=== PATIENT | male | born 1950 | race Caucasian/White ===

== ENCOUNTER → 2019-11-05 08:14 | Outpatient (CLI) | payer MEDICARE, SELFPAY ==
--- NOTE | ~2019-11-05 | XR_ITS ---
EXAMINATION: XR abdomen/kub 1V INDICATION: Bilateral kidney stones TECHNIQUE: Supine views of the abdomen were obtained on 2 radiographs. COMPARISON: 10/17/2018 FINDINGS: Again seen are stones measuring 1.3 cm and 1.4 cm in the left mid and lower kidney, respect ively. A stable 5 mm stone is also noted in the lower pole of left kidney. There is a 5 mm stone of t he right kidney lower pole. No stones are identified along the expected courses of the ureters or wit hin the bladder. The bowel gas pattern is normal. There is severe lumbar spondylosis. IMPRESSION: 1. Stable bilateral nephrolithiasis. Reviewed, dictated and finalized at location A.
--- NOTE | ~2019-11-05 | CT_ITS ---
EXAMINATION: CT abdomen pelvis wo con DATE: 11/05/2019 08:53 INDICATION: Bilateral kidney stones TECHNIQUE: Computed tomography (CT) of the abdomen and pelvis was performed without intravenous contr ast. Automated exposure control and iterative reconstruction technique were employed. Exam dose: 101 5.54 mGy-cm total exam DLP. COMPARISON: 11/05/2019 KUB 07/17/2018 CT abdomen pelvis FINDINGS: There are calcified granulomas in the middle and right lower lobes. There is no infiltrate or consolidation at the lung bases. Normal heart size. No pericardial or pleural effusion. The liver, gallbladder, bile ducts and spleen are unremarkable on this limited noncontrast examinatio n. There is some residual probable scarring in the region of the pancreatic body and tail from prior abs cess noted in this region on 07/17/2018. Normal morphology of the adrenal glands. Bilateral nonobstructive nephrolithiasis, with the stones more numerous and larger on the left. An up per pole left renal calculus measures up to 11 mm dimension with 1256 Hounsfield unit measurement. A lower pole calculus measures up to 12.5 mm, with attenuation of 1418 Hounsfield units. There are scat tered smaller left renal calculi. 2.5 cm and 1.8 cm upper pole right renal cysts. Several additional exophytic cysts are noted in the mid to lower right renal area, measuring up to 2.5 cm approximate ma ximal dimension. Bilateral renal scarring and left renal atrophy. No ureteral calculus or hydroureteronephrosis of either kidney. The urinary bladder is relatively roberto cuated; diffuse bladder wall thickening. Prostate enlargement and calcifications. There is calcification and tortuosity of the abdominal aorta but no aneurysm. No intraperitoneal or r etroperitoneal or pelvic mass lesion or adenopathy or ascites. Diverticulosis of the colon; no CT evidence of diverticulitis. No bowel obstruction, bowel wall thick ening, pneumatosis or intraperitoneal free air is evident. Small fat-containing inguinal hernias. There are extensive degenerative changes of the thoracic and lumbar spine, including particularly sev ere degenerative disease at L3-4, L4-5 and L5-S1. Diffuse idiopathic skeletal hyperostosis of the tho racolumbar spine. IMPRESSION: Bilateral nonobstructive nephrolithiasis, more prominent on the left Bilateral renal scarring, left renal atrophy Right renal cysts Reviewed, dictated and finalized at Location A. Reviewed, dictated and finalized at location B. IMPRESSION: Bilateral nonobstructive nephrolithiasis, more prominent on the le ft Bilateral renal scarring, left renal atrophy Right renal cysts
== END ==
PROVIDERS: Visit Provider Urology
DX: N20.0 Calculus of kidney (principal); N28.1 Cyst of kidney, acquired
CPT/HCPCS: 74018; 74176

== ENCOUNTER 2021-01-18 22:59 | Emergency (ER) | payer MEDICARE, SELFPAY ==
[2021-01-18 23:10] LABS: Glucose Point of Care 163 mg/dl (65-105)
--- NOTE | 2021-01-18 23:12 | ECG_ITS ---
Measurements Intervals [place] Rate: 80 P: [place]: 0 QRS: 87 QRSD: 210 T: 9 QT: 430 QTc: 497 Interpretive Statements ATRIAL FIBRILLATION RIGHT BUNDLE BRANCH BLOCK ANTERIOR ST ELEVATION MYOCARDIAL INFARCT- ACUTE INFERIOR ST ELEVATION MYOCARDIAL INFARCT- ACUTE ABNORMAL ECG Electronically Signed On 01-19-2021 6:50:27 CDT by Nick Baker D.O.
[2021-01-18 23:30] LABS: Base Excess ABG -17.9 mEq/l (+/-2.0); Fractional Inspired Oxygen 100 %; HCO3 ABG 12.3 mEq/l (22.0-26.0); Oxygen Content ABG 10.8 %vol (16.0-22.0); Oxygen Saturation ABG 87.5 % (95.0-100.0); Oxyhemoglobin 84.4 % THb (90.0-100.0); PCO2 ABG 49.2 mmHg (35.0-45.0); PO2 ABG 76.8 mmHg (80.0-100.0); PO2 FiO2 Ratio Arterial Blood 0.77 %
[2021-01-18 23:31] LABS: Device AMBU BAG; Site Drawn LEFT RADIAL; pH ABG 7.015 (7.350-7.450)
[2021-01-18 23:37] LABS: Hematocrit 30.6 % (42.0-52.0); Hemoglobin 8.6 g/dL (14.0-18.0); Mean Corpuscular HGB Conc 28.1 g/dl (32-36); Mean Corpuscular Hemoglobin 26.6 pg (26-34); Mean Corpuscular Volume 94.7 fl (80-100); Mean Platelet Volume 10.4 fl (7.4-10.4); Platelet Count Result 223 k/mm3 (150-375); Red Blood Count 3.23 M/mm3 (4.6-6.20); Red Cell Distribution Width 15.9 % (11.5-14.5); White Blood Count 24.1 K/mm3 (4.5-10.0)
[2021-01-18 23:48] LABS: Alanine Aminotransferase 49 U/L (4-50); Albumin Level 3.6 g/dL (3.5-5.1); Alkaline Phosphatase 67 U/L (38-126); Anion Gap 18 mmol/L (8-16); Aspartate Amino Transferase 181 U/L (17-59); Bilirubin,Total 0.6 mg/dL (0.2-1.3); Blood Urea Nitrogen 39 mg/dL (9-20); Calcium 8.5 mg/dL (8.4-10.2); Carbon Dioxide 14 mmol/L (22-30); Chloride 108 mmol/L (98-107); Estimated Glomerular Filt Rate 24; Glucose 261 mg/dL (65-110); Potassium 3.9 mmol/L (3.4-5.0); Sodium 140 mmol/L (137-145)
--- NOTE | 2021-01-19 00:08 | PC.NURSE ---
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
[2021-01-19 00:11] LABS: Lactic Acid Reflex 7.8 mmol/L (0.7-2.1)
[2021-01-19 00:19] LABS: Band Neutrophils Percent 7 % (0-6); Lymphocytes Absolute Manual 3.85 K/mm3 (1.1-4.5); Monocytes Absolute Manual 2.41 K/mm3 (0.1-0.90); Monocytes Percent Manual 10 % (3-9); Neutrophils Absolute Manual 17.83 K/mm3 (1.3-6.7); Neutrophils Percent Manual 67 % (46-73); Platelet Estimate Adequate (Adequate); Total Cells Counted 100
[2021-01-19 00:20] LABS: Atypical Lymphocytes Present
--- NOTE | 2021-01-19 00:30 | PC.NURSE ---
case number provided by [facility] [id number]. to call back with decision regarding candidacy for donation.
--- NOTE | 2021-01-19 00:31 | ED.GENADULT ---
HPI - General Adult General Chief complaint: Cardiac Arrest/CPR Stated complaint: cardiac arrest Time Seen by Provider: 01/18/21 23:12 Source: family and EMS History of Present Illness HPI narrative: Patient is a 70 y/o male brought in by EMS for cardiac arrest. states that she was in a different room at home when this happened. She heard a thud in bathroom and found him laying face down over the bath tub. He was unresponsive. When EMS arrived, he was pulseless and monitor showed Asystole. CPR was started. He was given Epi and he was intubated prior to arrival. Related Data Allergies Allergy/AdvReac Type Severity Reaction Status Date / Time No Known Allergies Allergy Unverified 09/13/18 07:20 Review of Systems Review of Systems: ROS unobtainable: Yes unobtainable due to medical condition [facility] Social History Social History Smoking status: Former smoker Second hand tobacco smoke exposure: Yes Smoking end date: 04/02/15 Alcohol intake: never Exam Const: Other: unresponsive, CPR in progress with Dyllan device HENMT: Head: normocephalic Ears: external ears normal General nose exam: Normal external nose present Neck: Neck: normal visual inspection Chest: Breast/axilla palpation: other (Dyllan device in place) Resp: tactile fremitus present: other (being manually bagged) Cardio: Other: No spontaneous pulse. Pulse present with chest compression GI: GI Palp: Yes Soft to palpation Skin: General skin exam: normal color and turgor normal Neuro: General: other (unresponsive) Extrem: General: normal to inspection, full ROM and no pedal edema Psych: Appearance: grossly normal Mental Status: mental status grossly normal Affect: normal affect Course Reevaluation(s) Reevaluation #1: Patient was coded according to ACLS protocol. He had brief ROSC, but soon went back to PEA. He was given Epi, Bicarb, Atropine and Dopamine. He never achieved sustained ROSC. He was pronounced at 11:53 PM. Patient's is informed of patient's condition. EKG was done when patient achieved brief ROSC. EKG is suggesting with STEMI. However, cardiology was not consulted for cath because patient quickly went back to PEA requiring active chest compression. He never had sustained spontaneous circulation to make cath feasible. Procedures Central Line Placement Right Femoral: Central Line Date: 01/18/21 Performed Emergently - Given emergent patient condition, temporal constraints may have precluded informed consent.: Yes Patient Placed on Monitor/Pulse Ox: Yes Max. Sterile Barrier Technique: Caps, large sterile sheet and hand hygiene Central Line Prep: 2% chlorhexidine scrub and sterile drapes applied Technique: sterile prep/drape Ultrasound Used for Placement: No Central Line Lumen Inserted: triple Post Procedure: sutured in place Complications: none Medical Decision Making Lab Data Result diagrams: 01/18/21 23:20 01/18/21 23:20 Labs: Lab Results 01/18/21 01/18/21 01/18/21 Range/Units 23:08 23:20 23:20 WBC 24.1 H (4.5-10.0) K/mm3 RBC 3.23 L (4.6-6.20) M/mm3 Hgb 8.6 L (14.0-18.0) g/dL Hct 30.6 L (42.0-52.0) % MCV 94.7 (80-100) fl MCH 26.6 (26-34) pg MCHC 28.1 L (32-36) g/dl RDW 15.9 H (11.5-14.5) % Plt Count 223 (150-375) k/mm3 MPV 10.4 (7.4-10.4) fl Immature Gran % (Auto) Not Reportable Neut % (Auto) Not Reportable Lymph % (Auto) Not Reportable [place] % (Auto) Not Reportable Eos % (Auto) Not Reportable Baso % (Auto) Not Reportable Lymph # (Auto) Not Reportable [place] # (Auto) Not Reportable Eos # (Auto) Not Reportable Baso # (Auto) Not Reportable Abs Immat Gran (auto) Not Reportable Absolute Neuts (auto) Not Reportable Absolute Nucleated RBC Not Reportable Total
--- NOTE | 2021-01-19 00:37 | PC.NURSE ---
Pt to ED via EMS in cardiac arrest. Code sheet filled out and signed by this RN as recorder. Thelma RN was ACLS RN assisting in code. Code called in field and compressions started by EMS. Pt was intubated on arrival with Dyllan in place and compressions in progress. See code sheet and notes for further details.
--- NOTE | 2021-01-19 00:51 | PC.NURSE ---
per aurora Casas, this pt is not a viscosity inspector case and ok to be released to home.
[2021-01-19 02:29] LABS: Reflex Lactic Acid Yes or No Add Lactic
== END 2021-01-18 23:53 | disposition expired ==
PROVIDERS: Emergency Provider Emergency Medicine
DX: I21.09 ST elevation (STEMI) myocardial infarction involving other coronary artery of anterior wall (principal); I46.2 Cardiac arrest due to underlying cardiac condition; Z87.891 Personal history of nicotine dependence; I48.91 Unspecified atrial fibrillation; I45.10 Unspecified right bundle-branch block
CPT/HCPCS: 36415; 36556; 36600; 80053; 82805; 82948; 83605; 84484; 85025; 87040; 92950; 93005; 99291; C1751; J0171; J0461; J1265; J7030; J7060; J7120